=== PATIENT | male | born 1950 | race Caucasian/White ===

== ENCOUNTER → 2016-11-16 | Outpatient (CLI) | payer MEDICARE, BC | LOC: SL 20:30 | PROVIDERS: ATTEND Nurse Practitioner Family | DX: G47.30 Sleep apnea, unspecified (principal) ==

== ENCOUNTER → 2018-12-19 | Outpatient (CLI) | payer MEDICARE, BC ==
--- NOTE | 2018-12-22 09:05 | RAD ---
EXAM DESCRIPTION: Foot,Right 2 Views CLINICAL HISTORY: PAIN COMPARISON: None Available. TECHNIQUE: AP, LATERAL FINDINGS: The visualized bones appear poorly mineralized. Moderate to severe degenerative changes are identified in the first metatarsophalangeal joint. Degenerative changes are identified in the midfoot. The soft tissues appear grossly unremarkable. 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 Electronically signed by: Dorene Bay MD 12/22/2018 9:03 AM CDT
== END ==
LOC: RAD 15:45
PROVIDERS: ATTEND Nurse Practitioner Family
DX: M19.071 Primary osteoarthritis, right ankle and foot (principal)

== ENCOUNTER → 2019-04-22 | Outpatient (CLI) | payer MEDICARE, BC ==
--- NOTE | 2019-04-23 06:43 | RAD ---
EXAM DESCRIPTION: Hip,Left 2 Views (accession [id number]), Pelvis (accession [id number]) CLINICAL HISTORY: 68 years Male, PAIN IN UNSPECIFIED HIP COMPARISON: None. Findings: 3 views/radiographs Degenerative changes in the visualized lumbar spine and sacroiliac joints. No acute fracture or dislocation. No focal soft tissue swelling. Mild bilateral hip osteoarthritis. IMPRESSION: Degenerative changes in the pelvis. No acute findings. Electronically signed by: Kvng Galdamez MD 04/23/2019 6:42 AM [facility]
--- NOTE | 2019-04-23 06:43 | RAD ---
EXAM DESCRIPTION: Hip,Left 2 Views (accession [id number]), Pelvis (accession [id number]) CLINICAL HISTORY: 68 years Male, PAIN IN UNSPECIFIED HIP COMPARISON: None. Findings: 3 views/radiographs Degenerative changes in the visualized lumbar spine and sacroiliac joints. No acute fracture or dislocation. No focal soft tissue swelling. Mild bilateral hip osteoarthritis. IMPRESSION: Degenerative changes in the pelvis. No acute findings. Electronically signed by: Kvng Galdamez MD 04/23/2019 6:[address] [facility]
== END ==
LOC: RAD 11:20
PROVIDERS: ATTEND Nurse Practitioner Family
DX: M16.0 Bilateral primary osteoarthritis of hip (principal); M47.896 Other spondylosis, lumbar region; M47.897 Other spondylosis, lumbosacral region; M47.898 Other spondylosis, sacral and sacrococcygeal region

== ENCOUNTER → 2019-04-29 | Outpatient (CLI) | payer MEDICARE, BC ==
--- NOTE | 2019-04-29 21:20 | MRI ---
EXAM DESCRIPTION: Lumbar Spine w/o Contrast CLINICAL HISTORY: 68 years Male, RADICULOPATHY LUMBAR REGION COMPARISON: None. TECHNIQUE: Multisequence, multiplanar images of the lumbar spine without intravenous contrast. FINDINGS: For the purpose of this report, the designated L5-S1 disc space will be referred to as axial T2 image 2. Vertebrae: No acute fracture. No acute compression deformity. Moderate severe lumbar lordosis centered at L3. 3 mm anterolisthesis of L3 relative to L4 contributing L5 facet hypertrophy. Very mild periarticular osseous edema about the left L3-4 facet joint. Spinal cord: Termination of the conus medullaris at T12-L1. Normal nerve roots of the cauda equina. Discs, facets, spinal canal, and neural foramina: Disc desiccation at L1-L2 through L4-5. Mild disc space narrowing at L3-4. L1-L2: Minimal disc bulge. Severe left greater than right facet arthropathy. Mild spinal canal stenosis. Mild right and moderate left neural foraminal stenosis. L2-L3: Small disc bulge. Severe facet arthropathy. Moderate spinal canal stenosis with AP narrowing to 8 mm. Mild right and moderate left neural foraminal stenosis. L3-4: Unroofing of the posterior disc space and superimposed small disc bulge eccentric towards the left. Severe facet arthropathy. Severe spinal canal stenosis with AP narrowing to 4-5 mm. Moderate right and severe left neural foraminal stenosis. L4-5: Small disc bulge. Severe facet arthropathy. Moderate spinal canal stenosis with AP narrowing to 7 mm. Mild bilateral neural foraminal stenosis. L5-S1: Small disc bulge. Severe right and moderate left facet arthropathy. Spinal canal is patent. Mild right but no left neural foraminal stenosis. Paraspinous soft tissues: Mild left greater than right periarticular soft tissue edema about the L3-4 facet joints. Right renal cyst measuring 4.2 cm. IMPRESSION: 1. No acute fracture. 2. Lumbar spondylosis with grade 1 anterolisthesis of L3 on L4 contribute by facet hypertrophy. 3. Periarticular edema about the L3-4 facet joints may be reactive or represent active inflammation. 4. Up to severe spinal canal stenosis at L3-L4. 5. Multilevel neural foraminal compromise, greatest and severe left L3. Mild/moderate neuroforaminal stenosis elsewhere as above. Electronically signed by: Jerry Blair MD 04/29/2019 9:18 PM [facility]
== END ==
LOC: MRI 09:00
PROVIDERS: ATTEND Nurse Practitioner Family
DX: M47.26 Other spondylosis with radiculopathy, lumbar region (principal); M43.16 Spondylolisthesis, lumbar region; R60.0 Localized edema; M48.061 Spinal stenosis, lumbar region without neurogenic claudication

== ENCOUNTER → 2019-08-17 | Outpatient (CLI) | payer MEDICARE, BC ==
--- NOTE | 2019-08-17 12:23 | RAD ---
EXAM DESCRIPTION: Knee,Right Complete CLINICAL HISTORY: 69 years Male, KNEE PAIN TECHNIQUE: 3 views of the right knee were performed. COMPARISON: None available. FINDINGS: The visualized bones appear well mineralized. No acute fracture or dislocation. Mild to moderate tricompartmental osteoarthritis with moderate-sized joint effusion. The soft tissues appear grossly unremarkable. IMPRESSION: Mild to moderate tricompartmental osteoarthritis with moderate-sized joint effusion. Electronically signed by: Dorene Bay MD 08/17/2019 12:21 PM CDT
== END ==
LOC: RAD 11:02
PROVIDERS: ATTEND Nurse Practitioner Family
DX: M17.11 Unilateral primary osteoarthritis, right knee (principal); M25.461 Effusion, right knee